=== PATIENT | male | born 1970 | race Caucasian/White ===

== ENCOUNTER → 2023-11-28 | Outpatient (REF) | LOC: M PLAIMG 11:28 | PROVIDERS: ATTEND Internal Medicine | DX: R52 Pain, unspecified (principal) ==

== ENCOUNTER → 2025-01-28 | Outpatient (REF) | LOC: M PLAIMG 12:52 | PROVIDERS: ATTEND Internal Medicine | DX: R52 Pain, unspecified (principal) ==